=== PATIENT | male | born 1990 ===

== ENCOUNTER 2017-03-07 20:53 | Emergency (ER) | payer BC, OTHER ==
[2017-03-07] MEDS ORDERED: cefTRIAXone\\ROCEPHIN 1 GM VIAL ONE (22:10)
[2017-03-07] MEDS ORDERED: Lidocaine 1% PF 5 ML VIAL ONE (22:10)
--- NOTE | 2017-03-07 22:20 | RAD ---
PA AND LATERAL CHEST X-RAY: 03/07/17 HISTORY: Fever for five days. Cough. FINDINGS: There are patchy parenchymal densities seen in the left lower lobes suggesting pneumonia. The right lung is clear. The cardiac silhouette and pulmonary vasculature are within normal limits. Osseous st ructures are intact. IMPRESSION: Left lower lobe pneumonia. Followup to resolution is recommended. POS: [facility]
== END 2017-03-07 22:30 | disposition home or self-care (01) ==
LOC: ERS 20:53
DX: J18.9 Pneumonia, unspecified organism (principal); J45.909 Unspecified asthma, uncomplicated; F17.210 Nicotine dependence, cigarettes, uncomplicated
CPT/HCPCS: 71020; 93005; 94640; 96372; J0696; J2001; J7620